=== PATIENT | male | born 1975 | race African-American/Black ===

== ENCOUNTER 2019-04-27 22:30 | Inpatient (IN) | payer MEDICAID, OTHER ==
[~2019-04-27] VITALS: Ht 172.7 cm; Wt 73.3 kg
[~2019-04-27 22:30] MED LIST: GABA100C PO; LISI-604 PO; [UNRECOGNIZED DRUG - CODE] SQ; insulin
[2019-04-28] MEDS ORDERED: MORPHINE SULFATE 4 MG/ML CPJ (NOT FOR IM USE) IV STA (00:14)
[2019-04-28] MEDS ORDERED: SODIUM CHLORIDE 0.9% 1,000 ML IV ONE ×3 (00:14→05:47)
[2019-04-28] MEDS ORDERED: FAMOTIDINE 20MG/2ML VIAL IV STA (00:14)
[2019-04-28] MEDS ORDERED: ONDANSETRON HCL 4MG/2ML INJ IV STA (00:14)
[2019-04-28] MEDS ORDERED: INSULIN REGULAR (HUMULIN R) 300UNITS/3ML SUBCUT ONE (00:15)
[2019-04-28 00:37] LABS: BASOPHILS % 0.6 % (0.0-2.0); HEMATOCRIT. 45.1 % (42.0-52.0); HEMOGLOBIN. 14.9 g/dL (14.0-18.0); LYMPHOCYTES % 14.4 % (20.0-50.0); MEAN CORPUSCULAR HEMOGLOBIN 28.6 pg (28.0-32.0); MEAN CORPUSCULAR VOLUME 86.5 fL (80.0-94.0); MEAN PLATELET VOLUME 9.7 fl (7.4-10.4); MONOCYTES % 5.1 % (2.0-8.0); NEUTROPHILS % 79.9 % (40.0-76.0); PLATELET 217 x1000/uL (130-400); RED BLOOD CELL COUNT 5.21 mill/uL (4.7-6.1); RED CELL DISTRIBUTION WIDTH 13.4 % (11.6-14.6)
[2019-04-28 00:45] LABS: CHLORIDE 92 mEq/L (98-107)
[2019-04-28 00:54] LABS: BETA HYDROXYBUTYRATE 4.9 mMol/L (0.0-0.3)
[2019-04-28] MEDS ORDERED: IOHEXOL-300 100 ML BOTTLE ONE (03:56)
[2019-04-28] MEDS ORDERED: DEXTROSE 5% WATER 1,000 ML IV ONE (05:47)
[2019-04-28] MEDS ORDERED: INSULIN REGULAR (DRIP) 100 UNITS in SODIUM CHLORIDE 0.9% 99 ML IV SCH (06:00)
[2019-04-28 06:16] LABS: CHLORIDE 103 mEq/L (98-107)
[2019-04-28] MEDS ORDERED: DEXTROSE 50% WATER 50ML SYRINGE IV ONE ×2 (06:18→06:45)
[2019-04-28 06:21] LABS: PHOSPHORUS 1.9 mg/dL (2.5-4.9)
[2019-04-28] MEDS ORDERED: INSULIN REGULAR (DRIP) 100 UNITS in SODIUM CHLORIDE 0.9% 99 ML IV ONE (07:00)
[2019-04-28 08:14] LABS: CHLORIDE 101 mEq/L (98-107)
[2019-04-28 10:57] LABS: CHLORIDE 102 mEq/L (98-107)
[2019-04-28 11:27] VITALS: BP 133/78
[2019-04-28] MEDS ORDERED: MORPHINE SULFATE 2 MG/ML CPJ (NOT FOR IM USE) IV PRN (12:30)
[2019-04-28] MEDS ORDERED: ONDANSETRON HCL 4MG/2ML INJ IV PRN (12:30)
[2019-04-28] MEDS ORDERED: DEXTROSE 50% WATER 50ML SYRINGE IV PRN (12:30)
[2019-04-28] MEDS: PANTOPRAZOLE SODIUM 40 MG/VIAL IV SCH (13:08)
[2019-04-28 16:00] VITALS: BP 90/49
[2019-04-28] MEDS: DEXT 5%/0.45% NACL KCL 20MEQ/L 1,000 ML IV SCH (16:12)
[2019-04-28] MEDS: METOCLOPRAMIDE HCL 10MG/2ML VIAL IV SCH ×2 (16:13→17:52)
[2019-04-28 16:15] LABS: BASOPHILS % 0.1 % (0.0-2.0); EOSINOPHILS % 0.1 % (0.0-5.0); HEMATOCRIT. 38.6 % (42.0-52.0); HEMOGLOBIN. 12.9 g/dL (14.0-18.0); LYMPHOCYTES % 17.1 % (20.0-50.0); MEAN CORPUSCULAR HEMOGLOBIN 28.8 pg (28.0-32.0); MEAN CORPUSCULAR VOLUME 86.3 fL (80.0-94.0); MEAN PLATELET VOLUME 9.5 fl (7.4-10.4); MONOCYTES % 6.8 % (2.0-8.0); NEUTROPHILS % 75.9 % (40.0-76.0); PLATELET 198 x1000/uL (130-400); RED BLOOD CELL COUNT 4.47 mill/uL (4.7-6.1)
[2019-04-28 16:18] LABS: CHLORIDE 101 mEq/L (98-107)
[2019-04-28 16:22] LABS: AMYLASE 52 IU/L (25-115)
[2019-04-28] MEDS: BLOOD SUGAR DIAGNOSTIC STRIP TEST SCH ×2 (17:20→20:27)
[2019-04-28] MEDS: INSULIN LISPRO 100 UNITS/ML SUBCUT SCH ×2 (17:53→21:26)
[2019-04-28 20:00] VITALS: BP 106/65
[2019-04-29] VITALS: BP 103/63
[2019-04-29] MEDS: METOCLOPRAMIDE HCL 10MG/2ML VIAL IV SCH ×5 (00:09→23:48)
[2019-04-29] MEDS: DEXT 5%/0.45% NACL KCL 20MEQ/L 1,000 ML IV SCH (00:10)
[2019-04-29 04:00] VITALS: BP 98/53
[2019-04-29] MEDS: BLOOD SUGAR DIAGNOSTIC STRIP TEST SCH ×4 (05:53→20:35)
[2019-04-29] MEDS: INSULIN LISPRO 100 UNITS/ML SUBCUT SCH ×6 (06:42→21:16)
[2019-04-29 07:12] LABS: BASOPHILS % 0.3 % (0.0-2.0); EOSINOPHILS % 0.2 % (0.0-5.0); HEMATOCRIT. 38.2 % (42.0-52.0); HEMOGLOBIN. 12.8 g/dL (14.0-18.0); LYMPHOCYTES % 19.5 % (20.0-50.0); MEAN CORPUSCULAR HEMOGLOBIN 29.2 pg (28.0-32.0); MEAN CORPUSCULAR VOLUME 87.4 fL (80.0-94.0); MEAN PLATELET VOLUME 9.5 fl (7.4-10.4); MONOCYTES % 9.1 % (2.0-8.0); NEUTROPHILS % 70.9 % (40.0-76.0); PLATELET 195 x1000/uL (130-400); RED BLOOD CELL COUNT 4.37 mill/uL (4.7-6.1); RED CELL DISTRIBUTION WIDTH 13.4 % (11.6-14.6)
[2019-04-29 07:21] LABS: CHLORIDE 100 mEq/L (98-107)
[2019-04-29 08:00] VITALS: BP 115/71
[2019-04-29] MEDS: ENOXAPARIN 40MG/0.4ML SYR SUBCUT SCH (09:38)
[2019-04-29] MEDS: PANTOPRAZOLE SODIUM 40 MG/VIAL IV SCH (09:38)
[2019-04-29 12:00] VITALS: BP 107/65
[2019-04-29] MEDS: INSULIN GLARGINE UD 100 UNITS/ML SYR SUBCUT SCH (12:03)
[2019-04-29] MEDS ORDERED: INSULIN GLARGINE UD 100 UNITS/ML SYR SUBCUT SCH (14:00)
[2019-04-29 16:00] VITALS: BP 132/78
[2019-04-29] MEDS: SODIUM CHLORIDE 0.9% 1,000 ML IV SCH (17:09)
[2019-04-29] MEDS ORDERED: DIPH1TAB24 MT (19:42)
[2019-04-29 20:06] VITALS: BP 125/84
[2019-04-30] VITALS: BP 128/86
[2019-04-30] MEDS: SODIUM CHLORIDE 0.9% 1,000 ML IV SCH ×2 (03:13→12:17)
[2019-04-30 04:18] VITALS: BP 110/55
[2019-04-30] MEDS: BLOOD SUGAR DIAGNOSTIC STRIP TEST SCH ×3 (06:08→17:00)
[2019-04-30] MEDS: METOCLOPRAMIDE HCL 10MG/2ML VIAL IV SCH ×3 (06:10→17:17)
[2019-04-30] MEDS: INSULIN LISPRO 100 UNITS/ML SUBCUT SCH ×6 (06:36→17:19)
[2019-04-30 08:00] VITALS: BP 119/71
[2019-04-30] MEDS: ENOXAPARIN 40MG/0.4ML SYR SUBCUT SCH (09:28)
[2019-04-30] MEDS: PANTOPRAZOLE SODIUM 40 MG/VIAL IV SCH (09:28)
[2019-04-30] MEDS: INSULIN GLARGINE UD 100 UNITS/ML SYR SUBCUT SCH (09:48)
[2019-04-30 12:06] VITALS: BP 100/73
[2019-04-30 14:08] LABS: CLARITY URINE CLEAR (CLEAR); COLOR URINE YELLOW (YELLOW); KETONES URINE NEGATIVE (NEGATIVE); LEUKOCYTE ESTERASE URINE NEGATIVE (NEGATIVE); NITRITE URINE NEGATIVE (NEGATIVE); OCCULT BLOOD URINE 2+ (NEGATIVE); PROTEIN URINE NEGATIVE (NEGATIVE); SPECIFIC GRAVITY URINE 1.013 (1.005-1.030)
[2019-04-30 16:00] VITALS: BP 143/86
[2019-04-30 17:59] VITALS: BP 143/86
== END 2019-04-30 18:30 | disposition home or self-care (01) | DRG 48 ==
LOC: ER 22:30 → 5WST 04-28 05:30 → EDBEDREQ 04-28 05:36 → EDBEDREQTM 04-28 05:36 → EDBEDREQSVC 04-28 05:47 → EDBEDREQ 04-28 05:48 → EDBEDREQSVC 04-28 08:05 → ENRESERV 04-28 10:01
PROVIDERS: ADMIT Internal Medicine; ATTEND Internal Medicine
DX: E11.43 Type 2 diabetes mellitus with diabetic autonomic (poly)neuropathy (principal); E87.1 Hypo-osmolality and hyponatremia; E11.10 Type 2 diabetes mellitus with ketoacidosis without coma; K31.84 Gastroparesis; F17.200 Nicotine dependence, unspecified, uncomplicated; I10 Essential (primary) hypertension; N20.0 Calculus of kidney; R00.0 Tachycardia, unspecified; Z90.49 Acquired absence of other specified parts of digestive tract; Z79.4 Long term (current) use of insulin; Z83.3 Family history of diabetes mellitus; Z79.84 Long term (current) use of oral hypoglycemic drugs; Z79.899 Other long term (current) drug therapy
CPT/HCPCS: 36415; 71045; 74177; 80048; 81003; 82010; 82150; 82962; 83036; 83605; 83735; 84100; 93005; 99291; C9113; J1650; J1815; J2270; J2405; J2765; J3490; J7030; J7050; J7070; Q9967